=== PATIENT | male | born 1940 | race Caucasian/White ===

== ENCOUNTER 2024-07-28 15:07 | Emergency (ER) | payer MEDICARE, OTHER ==
[~2024-07-28 15:07] MED LIST: Iopamidol 370 76% 100 ML VIAL ONE; Sodium Chloride 0.9% 100 ML BAG ONE
[2024-07-28 15:36] LABS: #Basophils 0.1 thou/uL (0.0-0.2); #Eosinophils 0.1 thou/uL (0.0-0.7); #Lymphocytes 1.9 thou/uL (1.20-3.40); #Monocytes 0.8 thou/uL (0.11-0.59); %Basophils 1.3 % (0.0-1.0); %Eosinophils 2.1 % (0.0-10.0); %Neutrophils 50.7 % (42.0-75.0); Hematocrit 36.9 % (42.0-52.0); Hemoglobin 11.8 g/dL (14.0-18.0); Mean Corpuscular HGB CONC 31.9 g/dL (32.0-36.0); Mean Corpuscular Hemoglobin 31.8 pg (27.0-31.0); Mean Corpuscular Volume 99.5 fl (78.0-98.0); Mean Platelet Volume 9.1 fL (7.4-10.4); Platelet Count 165 10x3/uL (130-400); RBC Distribution Width 13.3 % (11.5-14.5); Red Blood Cell (RBC) Count 3.71 mill/uL (4.70-6.10); White Blood Cell (WBC) Count 5.8 10x3/uL (4.8-10.8)
[2024-07-28 15:37] LABS: INR-International Normal Ratio 1.1; PTT 32.5 sec (22.9-36.1); Prothrombin Time 14.3 sec (12.0-14.7)
[2024-07-28 15:41] LABS: Base Excess-Venous 3.5 mmol/L (-2.0 to 3.0); Bicarbonate (HCO3v) 29.2 mmol/L (22.0-28.0); CO2 Tension (PvCO2) 47.9 mmHg (42.0-51.0); Chloride 103 mmol/L (98-107); Hemoglobin - Calc 13.1 g/dL (14.0-18.0); Potassium 4.3 mmol/L (3.5-5.1); Sodium 139 mmol/L (138-145); T. Carbon Dioxide 30.7 mmol/L (22.0-28.0); vO2 Saturation-calc 99.1 % (60.0-85.0)
[2024-07-28 15:42] LABS: Bilirubin Negative (Negative); Blood, Urine Negative (Negative); Clarity Clear (Clear); Glucose, Urine (Dipstick) Negative (Negative); Ketone, Urine Negative (Negative); Leukocyte Negative (Negative); Nitrite Negative (Negative); Protein, Urine (Dipstick) > or equal to 300 mg/dL (Neg-Trace); Urobilinogen 0.2 mg/dL (Less than 2)
[2024-07-28 15:50] LABS: ALT (SGPT) 9 U/L (8-55); AST (SGOT) 14 U/L (5-34); Albumin 3.1 g/dL (3.4-4.8); Alkaline Phosphatase 71 U/L (40-110); Anion Gap 13 mmol/L (10-20); BUN (Urea Nitrogen) 27 mg/dL (8.4-25.7); Bilirubin, Total 0.5 mg/dL (0.2-1.2); Calc. Creatinine Clearance 0 mL/min (70-130); Calcium 7.8 mg/dL (7.8-10.44); Carbon Dioxide 22 mmol/L (23-31); Chloride 106 mmol/L (98-107); Estimated GFR 59; Globulin 2.4 g/dL (2.4-3.5); Glucose 94 mg/dL (83-110); Magnesium 2.7 mg/dL (1.6-2.6); Potassium 4.3 mmol/L (3.5-5.1); Protein, Total 5.5 g/dL (5.8-8.1); Sodium 137 mmol/L (136-145); Troponin I 0.023 ng/mL (< 0.028)
[2024-07-28 15:52] LABS: CAUTI Indications for Culture Dysuria,urgency,freq; WBC/HPF 0-3 HPF (0-3)
[2024-07-28 15:53] LABS: Bacteria/HPF Rare-Few HPF (None Seen); Urine Culture Reflex No No
[2024-07-28] MEDS ORDERED: Ipratropium/Albuterol 3 ML NEB ONE (16:16)
[2024-07-28] MEDS ORDERED: Furosemide 40 MG (4 mL) VIAL ONE (16:59)
== END 2024-07-28 20:06 | disposition short-term general hospital (02) ==
LOC: MADERS 15:07
DX: J44.1 Chronic obstructive pulmonary disease with (acute) exacerbation (principal); J20.9 Acute bronchitis, unspecified; I11.0 Hypertensive heart disease with heart failure; I50.9 Heart failure, unspecified; E11.9 Type 2 diabetes mellitus without complications; E78.5 Hyperlipidemia, unspecified; Z87.891 Personal history of nicotine dependence; Z79.899 Other long term (current) drug therapy; Z79.84 Long term (current) use of oral hypoglycemic drugs
CPT/HCPCS: 71045; 71275; 80053; 81001; 82330; 82435; 82803; 83605; 83735; 83880; 84132; 84295; 84484; 85014; 85025; 85610; 85730; 87428; 93005; 94760; 96374; J1940; J7620; Q9967

== ENCOUNTER 2025-04-28 15:59 | Emergency (ER) | payer MEDICARE, OTHER ==
[2025-04-28 18:04] LABS: #Basophils 0.1 thou/uL (0.0-0.2); #Eosinophils 0.1 thou/uL (0.0-0.7); #Lymphocytes 1.3 thou/uL (1.20-3.40); #Monocytes 0.4 thou/uL (0.11-0.59); #Neutrophils 1.9 thou/uL (1.40-6.50); %Basophils 2.4 % (0.0-1.0); %Eosinophils 2.8 % (0.0-10.0); %Lymphocytes 34.5 % (21.0-51.0); %Monocytes 10.1 % (0.0-10.0); %Neutrophils 50.2 % (42.0-75.0); Hematocrit 26.5 % (42.0-52.0); Hemoglobin 8.3 g/dL (14.0-18.0); Mean Corpuscular Hemoglobin 30.4 pg (27.0-31.0); Mean Corpuscular Volume 97.1 fl (78.0-98.0); Platelet Count 174 10x3/uL (130-400); Red Blood Cell (RBC) Count 2.73 mill/uL (4.70-6.10); White Blood Cell (WBC) Count 3.8 10x3/uL (4.8-10.8)
[2025-04-28 18:20] LABS: ALT (SGPT) Less than 4 U/L (Less than 45); AST (SGOT) 13 U/L (11-34); Albumin 2.5 g/dL (3.1-4.5); Alkaline Phosphatase 81 U/L (40-110); Anion Gap 15 mmol/L (10-20); BUN (Urea Nitrogen) 28 mg/dL (8.4-25.7); Bilirubin, Total 0.5 mg/dL (0.3-1.2); CK (CPK) 55 U/L (30-200); Calc. Creatinine Clearance 0 mL/min (70-130); Calcium 7.9 mg/dL (7.8-10.44); Carbon Dioxide 23 mmol/L (23-31); Chloride 110 mmol/L (98-107); Globulin 3.2 g/dL (2.4-3.5); Glucose 96 mg/dL (83-110); Lipase 23 U/L (8-78); Magnesium 1.7 mg/dL (1.6-2.6); Potassium 4.2 mmol/L (3.5-5.1); Sodium 144 mmol/L (136-145); Troponin I 0.029 ng/mL (< 0.028)
[2025-04-28 18:45] LABS: Glucose, Urine (Dipstick) Negative (Negative); Leukocyte Moderate (Negative); Protein, Urine (Dipstick) > or equal to 300 mg/dL (Neg-Trace); Specific Gravity, Urine 1.025 (1.005-1.030)
[2025-04-28 18:52] LABS: Bacteria/HPF 2+ HPF (None Seen); CAUTI Indications for Culture Alt mental st,lethar; WBC/HPF Greater Than 50 HPF (0-3)
[2025-04-28 18:53] LABS: Urine Culture Reflex Yes Yes
[2025-04-28] MEDS ORDERED: cefTRIAXone (ROCEPHIN) 2 GM VIAL ONE (19:08)
== END 2025-04-29 00:30 | disposition short-term general hospital (02) ==
LOC: MADERS 15:59
DX: A41.9 Sepsis, unspecified organism (principal); S06.5XAA Traumatic subdural hemorrhage with loss of consciousness status unknown, initial encounter; R41.82 Altered mental status, unspecified; N39.0 Urinary tract infection, site not specified; E11.9 Type 2 diabetes mellitus without complications; E78.5 Hyperlipidemia, unspecified; I10 Essential (primary) hypertension; Z95.5 Presence of coronary angioplasty implant and graft; Z87.891 Personal history of nicotine dependence; Z79.82 Long term (current) use of aspirin; Z79.899 Other long term (current) drug therapy
CPT/HCPCS: 70450; 71045; 80053; 81001; 82550; 83690; 83735; 83880; 84484; 85025; 87040; 87077; 87086; 87186; 93005; 96365; J0696

== ENCOUNTER 2025-05-23 10:33 | Emergency (ER) | payer OTHER ==
[2025-05-23 11:26] LABS: Glucose, Urine (Dipstick) Negative (Negative); Leukocyte Trace (Negative); Protein, Urine (Dipstick) > or equal to 300 mg/dL (Neg-Trace); Specific Gravity, Urine 1.020 (1.005-1.030)
[2025-05-23 11:30] LABS: Cocaine Metabolite Screen Negative (Negative); THC/Cannabinoid Screen Negative (Negative); Tricyclic Screen Negative (Negative)
[2025-05-23 11:35] LABS: #Basophils 0.0 thou/uL (0.0-0.2); #Eosinophils 0.0 thou/uL (0.0-0.7); #Lymphocytes 1.7 thou/uL (1.20-3.40); #Monocytes 0.7 thou/uL (0.11-0.59); #Neutrophils 4.9 thou/uL (1.40-6.50); %Basophils 0.5 % (0.0-1.0); %Eosinophils 0.6 % (0.0-10.0); %Lymphocytes 23.4 % (21.0-51.0); %Monocytes 9.4 % (0.0-10.0); %Neutrophils 66.0 % (42.0-75.0); Hematocrit 34.1 % (42.0-52.0); Hemoglobin 10.5 g/dL (14.0-18.0); Mean Corpuscular Hemoglobin 30.5 pg (27.0-31.0); Mean Corpuscular Volume 99.1 fl (78.0-98.0); Platelet Count 220 10x3/uL (130-400); Red Blood Cell (RBC) Count 3.44 mill/uL (4.70-6.10); White Blood Cell (WBC) Count 7.4 10x3/uL (4.8-10.8)
[2025-05-23 11:36] LABS: Bacteria/HPF 4+ HPF (None Seen); CAUTI Indications for Culture Alt mental st,lethar; RBC/HPF None Seen HPF (0-3); WBC/HPF Greater Than 50 HPF (0-3)
[2025-05-23 11:37] LABS: Urine Culture Reflex Yes Yes
[2025-05-23 11:48] LABS: ALT (SGPT) Less than 4 U/L (Less than 45); AST (SGOT) 16 U/L (11-34); Albumin 2.9 g/dL (3.1-4.5); Alkaline Phosphatase 77 U/L (40-110); Anion Gap 15 mmol/L (10-20); BUN (Urea Nitrogen) 25 mg/dL (8.4-25.7); Bilirubin, Total 0.4 mg/dL (0.3-1.2); Calc. Creatinine Clearance 0 mL/min (70-130); Calcium 8.8 mg/dL (7.8-10.44); Carbon Dioxide 28 mmol/L (23-31); Chloride 106 mmol/L (98-107); Globulin 3.7 g/dL (2.4-3.5); Glucose 119 mg/dL (83-110); Potassium 3.6 mmol/L (3.5-5.1); Sodium 145 mmol/L (136-145)
[2025-05-23 11:49] LABS: Acetaminophen Less than 10 mcg/mL (Less than 10); Salicylate Less than 8.0 mg/dL (Less than 8.0)
[2025-05-23 11:50] LABS: Troponin I 0.060 ng/mL (< 0.028)
[2025-05-23] MEDS ORDERED: cefTRIAXone (ROCEPHIN) 1 GM VIAL ONE (11:55)
[2025-05-23 15:58] LABS: Troponin I 0.172 ng/mL (< 0.028)
[2025-05-23 17:34] LABS: Troponin I 0.227 ng/mL (< 0.028)
== END 2025-05-23 17:09 | disposition short-term general hospital (02) ==
LOC: MADERS 10:33
DX: R41.82 Altered mental status, unspecified (principal); N17.9 Acute kidney failure, unspecified; E11.22 Type 2 diabetes mellitus with diabetic chronic kidney disease; N18.9 Chronic kidney disease, unspecified; I12.9 Hypertensive chronic kidney disease with stage 1 through stage 4 chronic kidney disease, or unspecified chronic kidney disease; D64.9 Anemia, unspecified; R79.89 Other specified abnormal findings of blood chemistry; N39.0 Urinary tract infection, site not specified; Z87.891 Personal history of nicotine dependence
CPT/HCPCS: 70450; 71045; 72125; 80053; 80306; 80307; 81001; 83605; 83880; 84484 ×2; 85025; 87040; 87077; 87086; 93005; 96365; 99285; J0696; 87186